=== PATIENT | female | born 1995 | race Caucasian/White ===

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

== ENCOUNTER → 2017-10-19 | Outpatient (CLI) | payer BC ==
[2017-10-19 14:53] LABS: T4, Free (Free Thyroxine) 1.1 ng/dL (0.78-2.19)
== END | disposition home or self-care (01) ==
LOC: LABWHC1 13:46
PROVIDERS: ATTEND Internal Medicine
DX: E03.9 Hypothyroidism, unspecified (principal)
CPT/HCPCS: 36415; 84439; 84443

== ENCOUNTER → 2018-01-18 | Outpatient (CLI) | payer BC ==
--- NOTE | 2018-01-18 15:06 | US ---
EXAMINATION TYPE: US pelvic complete DATE OF EXAM: 01/18/2018 COMPARISON: US CLINICAL HISTORY: R10.2 pelvic pain. Pt states pelvic pain, more on right side x 2 months TECHNIQUE: Transabdominal (TA). Transabdominal sonographic images of the pelvis were acquired. Date of LMP: 12/26/2017 EXAM MEASUREMENTS: Uterus: 6.8 x 2.8 x 4.2 cm Endometrial Stripe: 0.6 cm Right Ovary: 2.8 x 1.6 x 2.5 cm Left Ovary: 3.0 x 1.7 x 1.9 cm Urinary bladder is sonolucent. Posterior wall is normal. 1. Uterus: Anteverted wnl 2. Endometrium: wnl 3. Right Ovary: wnl 4. Left Ovary: wnl 5. Bilateral Adnexa: wnl 6. Posterior cul-de-sac: wnl Normal appearing pelvis IMPRESSION: 1. Unremarkable pelvis
== END | disposition home or self-care (01) ==
LOC: RADUSWWP 08:19
PROVIDERS: ATTEND Internal Medicine
DX: R10.2 Pelvic and perineal pain (principal)
CPT/HCPCS: 76856

== ENCOUNTER 2018-11-29 16:04 | Emergency (ER) | payer BC ==
[2018-11-29] MEDS ORDERED: SODIUM CHLORIDE 0.9% 1,000 ML IV STA ×3 (16:50→18:28)
[2018-11-29] MEDS ORDERED: SODIUM CHLORIDE 0.9% 500 ML 500 ML IV STA (16:50)
[2018-11-29 17:03] LABS: Basophils % (A) 0 %; Eosinophils # (A) 0.2 k/uL (0-0.7); Eosinophils % (A) 1 %; HCT 46.7 % (34.0-46.0); HGB 15.6 gm/dL (11.4-16.0); Lymphocytes # (A) 0.4 k/uL (1.0-4.8); Lymphocytes % (A) 3 %; MCH 29.6 pg (25.0-35.0); MCHC 33.5 g/dL (31.0-37.0); MCV 88.3 fL (80.0-100.0); Mean Platelet Volume 9.1; Monocytes # (A) 0.4 k/uL (0-1.0); Monocytes % (A) 3 %; Neutrophils # (A) 15.2 k/uL (1.3-7.7); Neutrophils % (A) 94 %; Platelet Count 281 k/uL (150-450); RBC 5.29 m/uL (3.80-5.40); RDW 13.4 % (11.5-15.5); WBC 16.3 k/uL (3.8-10.6)
[2018-11-29 17:14] LABS: ALT 20 U/L (9-52); AST 23 U/L (14-36); African American GFR (CKD) >90 (>60 ml/min/1.73 sqM); Alkaline Phosphatase 66 U/L (38-126); Anion Gap 16 mmol/L; Blood Urea Nitrogen 13 mg/dL (7-17); Calcium 9.7 mg/dL (8.4-10.2); Carbon Dioxide 19 mmol/L (22-30); Chloride 105 mmol/L (98-107); Glucose 150 mg/dL (74-99); Magnesium 1.3 mg/dL (1.6-2.3); Phosphorus 1.3 mg/dL (2.5-4.5); Potassium 4.4 mmol/L (3.5-5.1); Sodium 140 mmol/L (137-145); Total Bilirubin 2.2 mg/dL (0.2-1.3)
[2018-11-29] MEDS ORDERED: ONDANSETRON 4 MG/2 ML VIAL IVP STA (17:53)
--- NOTE | 2018-11-29 18:01 | ED ---
Nausea/Vomiting/Diarrhea HPI - General Chief complaint: Nausea/Vomiting/Diarrhea Stated complaint: N & V Dehydration Time Seen by Provider: 11/29/18 16:27 Source: patient, RN notes reviewed, old records reviewed Mode of arrival: ambulatory Limitations: no limitations - History of Present Illness Initial comments: This is a 23-year-old female the ER with no significant medical history, here with nausea vomiting and diarrhea. This started today with no recent travel history or sick contacts. No family members with similar complaints. Patient denies abdominal pain. She does have multiple episodes of nausea vomiting of the day causing her some severe stress and anxiety. She has not tried eating and drinking okay for a few hours now. Currently unable to urinate secondary to dehydration. Patient states she has no pain. She has had 4-5 episodes of diarrhea seen with nausea vomiting, no blood MD complaint: nausea, vomiting, diarrhea -: hour(s) Description of Vomiting: food contents, watery Description of Diarrhea: water Associated Abdominal Pain: No Radiation: none Severity: moderate Severity scale (1-10): 5 Consistency: constant Improves with: none Worsens with: eating Associated Symptoms: myalgias, loss of appetite, nausea/vomiting, weakness - Related Data Home Medications Medication Instructions Recorded Confirmed Levothyroxine Sodium [Synthroid] 75 mcg PO DAILY 11/29/18 11/29/18 Norgestimate-Ethinyl Estradiol 1 tab PO DAILY 11/29/18 11/29/18 [Tri-Sprintec Tablet] Allergies Allergy/AdvReac Type Severity Reaction Status Date / Time tree nut Allergy Unknown Verified 11/29/18 16:35 wheat Allergy Unknown Verified 11/29/18 16:35 Review of Systems ROS Statement: Those systems with pertinent positive or pertinent negative responses have been documented in the HPI. ROS Other: All systems not noted in ROS Statement are negative. Past Medical History Past Medical History: No Reported History History of Any Multi-Drug Resistant Organisms: MRSA Date of last positivie culture/infection: 03/21/2014 MDRO Source:: Face Past Surgical History: Orthopedic Surgery Past Psychological History: No Psychological Hx Reported Smoking Status: Never smoker Past Alcohol Use History: None Reported Past Drug Use History: None Reported General Exam Limitations: no limitations General appearance: alert, anxious Head exam: Present: atraumatic, normocephalic, normal inspection Eye exam: Present: normal appearance, PERRL, EOMI. Absent: scleral icterus, conjunctival injection, periorbital swelling ENT exam: Present: normal exam, mucous membranes dry Neck exam: Present: normal inspection. Absent: tenderness, meningismus, lymphadenopathy Respiratory exam: Present: normal lung sounds bilaterally. Absent: respiratory distress, wheezes, rales, rhonchi, stridor Cardiovascular Exam: Present: normal rhythm, tachycardia, normal heart sounds. Absent: systolic murmur, diastolic murmur, rubs, gallop, clicks GI/Abdominal exam: Present: soft, normal bowel sounds. Absent: distended, tenderness, guarding, rebound, rigid Extremities exam: Present: normal inspection, full ROM, normal capillary refill. Absent: tenderness, pedal edema, joint swelling, calf tenderness Back exam: Present: normal inspection Neurological exam: Present: alert, oriented X3, CN II-XII intact Psychiatric exam: Present: normal affect, normal mood Skin exam: Present: warm, dry, intact, normal color. Absent: rash Course Vital Signs 11/29/18 11/29/18 11/29/18 16:05 16:37 18:17 Temperature 98.7 F Pulse Rate 106 H 84 Respiratory 18 16 18 Rate Blood Pressure 114/57 127/84 120/73 O2 Sat by Pulse 96 96 100 Oximetry - Reevaluation(s) Reevaluation #1: 11/29/18 18:30 Medical records reviewed Reevaluation #2: 11/29/18 18:30 Patient feeling mild improvement after first medication. Medical Decision Making - Medical Decision Making Martín female the ER for evaluation of nausea vomiting diarrhea multiple times starting this morning. Patient feels very weak, dehydrated. Symptoms significantly improved here in the ER and can be discharged - Lab Data Result diagrams: 11/29/18 16:55 11/29/18 16:55 Lab Results 11/29/18 11/29/18 Range/Units 16:55 16:55 WBC 16.3 H (3.8-10.6) k/uL RBC 5.29 (3.80-5.40) m/uL Hgb 15.6 (11.4-16.0) gm/dL Hct 46.7 H (34.0-46.0) % MCV 88.3 (80.0-100.0) fL MCH 29.6 (25.0-35.0) pg MCHC 33.5 (31.0-37.0) g/dL RDW 13.4 (11.5-15.5) % Plt Count 281 (150-450) k/uL Neutrophils % 94 % Lymphocytes % 3 % Monocytes % 3 % Eosinophils % 1 % Basophils % 0 % Neutrophils # 15.2 H (1.3-7.7) k/uL Lymphocytes # 0.4 L (1.0-4.8) k/uL Monocytes # 0.4 (0-1.0) k/uL Eosinophils # 0.2 (0-0.7) k/uL Basophils # 0.0 (0-0.2) k/uL Sodium 140 (137-145) mmol/L Potassium 4.4 (3.5-5.1) mmol/L Chloride 105 (98-107) mmol/L Carbon Dioxide 19 L (22-30) mmol/L Anion Gap 16 mmol/L BUN 13 (7-17) mg/dL Creatinine 0.58 (0.52-1.04) mg/dL Est GFR (CKD-EPI)AfAm >90 (>60 ml/min/1.73 sqM) Est GFR (CKD-EPI)NonAf >90 (>60 ml/min/1.73 sqM) Glucose 150 H (74-99) mg/dL Calcium 9.7 (8.4-10.2) mg/dL Phosphorus 1.3 L (2.5-4.5) mg/dL Magnesium 1.3 L (1.6-2.3) mg/dL Total Bilirubin 2.2 H (0.2-1.3) mg/dL AST 23 (14-36) U/L ALT 20 (9-52) U/L Alkaline Phosphatase 66 (38-126) U/L Total Protein 8.0 (6.3-8.2) g/dL Albumin 5.0 (3.5-5.0) g/dL Disposition Clinical Impression: Gastroenteritis, Dehydration Disposition: HOME SELF-CARE Condition: Good Instructions (If sedation given, give patient instructions): Acute Nausea and Vomiting (ED), Acute Diarrhea (ED) Is patient prescribed a controlled substance at d/c from ED?: No Referrals: Raina Montemayor MD [Primary Care Provider] - 1-2 days
[2018-11-29] MEDS ORDERED: METOCLOPRAMIDE 5 MG/ML 2 ML VIAL IVP STA (18:28)
[2018-11-29] MEDS ORDERED: MAGNESIUM SULFATE-D5W PMX 1 GM in DEXTROSE/WATER 1 100ML.BAG IVPB ONE (18:28)
[2018-11-29] MEDS ORDERED: PANTOPRAZOLE 40 MG/10 ML VIAL IVP STA (18:28)
[2018-11-29] MEDS ORDERED: KETOROLAC 30 MG/ML 1 ML VIAL IVP STA (18:28)
[2018-11-29 19:41] LABS: Amorphous Sediment,Urine Rare /hpf; Appearance,Urine Clear (Clear); Bacteria,Urine Occasional /hpf; Bilirubin,Urine Negative (Negative); Blood,Urine Negative (Negative); Color,Urine Yellow; Glucose,Urine (UA) Negative (Negative); Hyaline Casts,Urine 1 /lpf (0-2); Ketones,Urine 3+ (Negative); Leukocyte Esterase,Urine Small (Negative); Nitrite,Urine Negative (Negative); Protein,Urine Trace (Negative); RBC,Urine 1 /hpf (0-5); Specific Gravity,Urine 1.023 (1.001-1.035); Squamous Epithelial Cell,Urine 9 /hpf (0-4); Urobilinogen,Urine <2.0 mg/dL (<2.0); WBC,Urine 11 /hpf (0-5)
[2018-11-29] MEDS ORDERED: PROCHLORPERAZINE 5 MG TAB PO STA (20:00)
[2018-11-29 20:35] VITALS: BP 111/65; PULSE 77; RESP 12; TEMP 98.8
[2018-11-30 12:40] LABS: T4, Free (Free Thyroxine) 1.38 ng/dL (0.78-2.19)
== END 2018-11-29 20:35 | disposition home or self-care (01) ==
LOC: EC 16:04
DX: K52.9 Noninfective gastroenteritis and colitis, unspecified (principal); E86.0 Dehydration; F43.9 Reaction to severe stress, unspecified; F41.9 Anxiety disorder, unspecified; Z86.14 Personal history of Methicillin resistant Staphylococcus aureus infection; Z79.890 Hormone replacement therapy; Z79.3 Long term (current) use of hormonal contraceptives; Z91.018 Allergy to other foods
CPT/HCPCS: 99284; 96365; 96375 ×4; 96361 ×2; 36415; 84439; 80053; 83735; 84100; 84443; 85025; 81001; 81025; 87086; S0183; J2765; J2405; J1885; J3475; C9113

== ENCOUNTER 2022-11-07 10:15 | Outpatient (CLI) | payer BC ==
[2022-11-07 11:07] VITALS: BP 120/76; PULSE 99; RESP 16; TEMP 98.3
--- NOTE | 2022-11-08 07:25 | P.MSEPDOC ---
Presenting Problems - Arrival Data Date of Arrival on Unit: 11/07/22 Time of Arrival on Unit: 10:15 Mode of Transport: Ambulatory - Complaint OB-Reason for Admission/Chief Complaint: Pain Comment: RLQ/groin pain with walking, pelvic pressure with sitting, pressure with urination Medical History - Information : 2 Para: 0 Term: 0 : 0 Abortions: Spontaneous or Elective: 1 Number of Living Children: 0 - Gestational Age Gestational Age by DAKOTA (wks/days): 24 Weeks and 2 Days Review of Systems - Review of Systems Constitutional: No problems Breast: No problems ENT: No problems Cardiovascular: No problems Respiratory: No problems Gastrointestinal: No problems Genitourinary: No problems Musculoskeletal: No problems Neurological: No problems Skin: No problems Vital Signs - Temperature Temperature: 98.3 F Temperature Source: Temporal Artery Scan - Pulse Pulse Oximetery Pulse Rate: 99 Pulse Assessment Method: Pulse Oximetry - Respirations Respiratory Rate: 16 Oxygen Delivery Method: Room Air O2 Sat by Pulse Oximetry: 95 - Blood Pressure Right Arm Blood Pressure: 120/76 Blood Pressure Mean: 90 Blood Pressure Source: Automatic Cuff Medical Screen Scoring - Assessment - Baby A Baseline FHR: 135 Heart Rate - NICHD Category: Category I (Normal) Physician Notification - Physician Notified Physician Notified Date: 11/07/22 Physician Notified Time: 10:51 Physician: Fransico Calderon Order Received: Yes - Notification Comment Comment: Dr. Calderon called, report given on pt's c/o R lower abdominal/groin shooting. pain with walking, pelvic pressure with sitting, and increased pressure with urination. FHR is 140s and appropriate for a 24wk fetus, no contractions, and abdomen is soft to. palpation. Pt receives care out of [place]. Orders to discharge pt home with instructions. to follow up with her primary OB. Maternal Triage Index - Maternal Triage Index Presenting for scheduled procedure w/no complaint: No - Stat/Priority 1 Stat Priority 1: No - Urgent/Priority 2 Urgent Priority 2: No - Prompt/Priority 3 Prompt Priority 3: No - Non-Urgent/Priority 4 Non-Urgent Priority 4: Yes Criteria Met for Priority 4: 24 2/7wks, RLQ/groin pain with walking, pelvic pressure when sitting, pressure with urination Disposition - Disposition OB Disposition: Discharge to home Discharge Date: 11/07/22 Discharge Time: 10:57 I agree with the RN Medical Screening Exam: Yes Case reviewed; plan agreed upon as documented in EMR&OBIX.: Yes Diagnosis: RELATED CONDITIONS, UNSPECIFIED, SECOND TRIMESTER (Patient presents to labor and delivery with complaints of pelvic pain. care has been with another physician in [place] and her records are unavailable to us. Patient is found not to be having any labor. heart tones are reassuring for gestational age. Patient's felt to be stable for discharge home follow up with her primary physician. She was instructed in the future that although certainly she is welcome to come see us here, her records and physicians at another facility incident her best interest to go therefore for further concerns.)
== END 2022-11-07 10:57 | disposition home or self-care (01) ==
LOC: FBPOP 10:15
PROVIDERS: ATTEND Obstetrics & Gynecology
DX: O26.892 Other specified pregnancy related conditions, second trimester (principal); Z3A.24 24 weeks gestation of pregnancy; Z91.018 Allergy to other foods
CPT/HCPCS: 99213

== ENCOUNTER 2024-10-03 19:39 | Outpatient (CLI) | payer BC ==
[2024-10-03 20:35] VITALS: BP 126/68; PULSE 94; RESP 16; TEMP 97.4
--- NOTE | 2024-11-27 10:28 | P.MSEPDOC ---
Presenting Problems - Arrival Data Date of Arrival on Unit: 10/03/24 Time of Arrival on Unit: 19:39 Mode of Transport: Ambulatory - Complaint OB-Reason for Admission/Chief Complaint: Decreased Movement Comment: Patient presents to triage with complaints of decreased movement since last night and abdominal pressure. Medical History - Information : 2 Para: 1 Term: 1 : 0 Abortions: Spontaneous or Elective: 0 Number of Living Children: 1 - Gestational Age Gestational Age by DAKOTA (wks/days): 26 Weeks and 4 Days Review of Systems - Review of Systems Constitutional: No problems Breast: No problems ENT: No problems Cardiovascular: No problems Respiratory: No problems Gastrointestinal: No problems Genitourinary: No problems Musculoskeletal: No problems Neurological: No problems Skin: No problems Vital Signs - Temperature Temperature: 97.4 F Temperature Source: Temporal Artery Scan - Pulse Pulse Oximetery Pulse Rate: 94 Pulse Assessment Method: Pulse Oximetry - Respirations Respiratory Rate: 16 Oxygen Delivery Method: Room Air O2 Sat by Pulse Oximetry: 97 - Blood Pressure Right Arm Blood Pressure: 126/68 Blood Pressure Mean: 87 Blood Pressure Source: Automatic Cuff Medical Screen Scoring - Cervical Exam Membranes: Intact - Uterine Contractions Intensity: Absent - Assessment - Baby A Baseline FHR: 150 Heart Rate - NICHD Category: Category I (Normal) NST: Reactive Physician Notification - Physician Notified Physician Notified Date: 10/03/24 Physician Notified Time: 20:08 Physician: Denise Retana New Order Received: No - Notification Comment Comment: RN reported on , 26 4/7 GA, stable vitals, no contractions felt by patient or traced via TOCO, reactive NST. Patient complaint of decreased movement, and bilateral groin pain/pressure. movement audible via FHM. Orders to discharge patient home. Maternal Triage Index - Maternal Triage Index Presenting for scheduled procedure w/no complaint: No - Stat/Priority 1 Stat Priority 1: No - Urgent/Priority 2 Urgent Priority 2: Yes Provider Notified: Denise Retana Provider Notified Time: 20:08 Criteria Met for Priority 2: Patient presents to triage with complaints of decreased movement since last night and abdominal pressure. Disposition - Disposition OB Disposition: Discharge to home Discharge Date: 10/03/24 Discharge Time: 20:17 I agree with the RN Medical Screening Exam: Yes Case reviewed; plan agreed upon as documented in EMR&OBIX.: Yes Diagnosis: DECREASED MOVEMENTS, SECOND TRIMESTER, FETUS 1
== END 2024-10-03 20:09 | disposition home or self-care (01) ==
LOC: FBPOP 19:39
PROVIDERS: ATTEND Obstetrics & Gynecology
DX: Z53.9 Procedure and treatment not carried out, unspecified reason (principal)
CPT/HCPCS: 59025; 99213